=== PATIENT | female | born 1955 | race American Indian/Alaskan Native ===

== ENCOUNTER 2020-05-01 02:28 | Emergency (ER) | payer MEDICAID ==
[2020-05-01] MEDS ORDERED: metroNIDAZOLE 500 MG TAB PO ONE (03:31)
--- NOTE | 2020-05-01 03:31 | Emergency Department Report ---
ED Abdominal Pain HPI - General Chief Complaint: High BP Stated Complaint: LOOSE STOOL,RAPID HB, Time Seen by Provider: 05/01/20 03:21 Source: patient, EMS Mode of arrival: Stretcher Limitations: No Limitations - History of Present Illness Initial Comments: CC: "I'm not in pain." HPI: This is a 64 yo female with hx of CHF and possible CVA who presents with shortness of breath, leg swelling, stomach upset, diarrhea. Patient was transported from assisted living facility via EMS. She says, "I do not feel bad. My stomach was just upset. Smelly poop." Patient thinks she may have "messed up" with her medications. No further history provided. Patient has not been to our hospital on prior occasion. Patient was most recently seen at [facility]. Patient has mild shortness of breath, mild leg swelling for several days. MD Complaint: abdominal pain -: Gradual, days(s) (1 day) Location: periumbilical Radiation: none Severity scale (0 -10): 0 Quality: dull Consistency: now resolved Improves With: nothing Worsens With: nothing Associated Symptoms: diarrhea - Related Data Previous Rx's Medication Instructions Recorded Last Taken Type metroNIDAZOLE [Flagyl] 500 mg PO Q12HR 7 Days #14 tab 05/01/20 Unknown Rx Allergies Allergy/AdvReac Type Severity Reaction Status Date / Time No Known Allergies Allergy Unverified 05/01/20 02:52 ED Review of Systems ROS: Stated complaint: LOOSE STOOL,RAPID HB, Other details as noted in HPI Comment: All other systems reviewed and negative Constitutional: denies: chills, fever, malaise Respiratory: shortness of breath. denies: cough Cardiovascular: denies: chest pain Gastrointestinal: abdominal pain, diarrhea ED Past Medical Hx - Past Medical History Previous Medical History?: Yes Hx Hypertension: Yes Hx Congestive Heart Failure: Yes - Social History Smoking Status: Never Smoker - Medications Home Medications: Home Medications Medication Instructions Recorded Confirmed Last Taken Type metroNIDAZOLE [Flagyl] 500 mg PO Q12HR 7 Days #14 tab 05/01/20 Unknown Rx ED Physical Exam - General Limitations: No Limitations General appearance: alert, in no apparent distress, other (pleasant, smiling, no acute distress) - Head Head exam: Present: atraumatic, normocephalic - Eye Eye exam: Present: normal appearance - ENT ENT exam: Present: mucous membranes moist - Neck Neck exam: Present: normal inspection, full ROM - Respiratory Respiratory exam: Present: normal lung sounds bilaterally. Absent: respiratory distress, wheezes, rales, stridor - Cardiovascular Cardiovascular Exam: Present: regular rate, normal rhythm, normal heart sounds. Absent: systolic murmur, diastolic murmur, rubs, gallop - GI/Abdominal GI/Abdominal exam: Present: soft, normal bowel sounds. Absent: distended, tenderness, guarding, rebound - Extremities Exam Extremities exam: Present: pedal edema - Back Exam Back exam: Present: normal inspection - Neurological Exam Neurological exam: Present: alert, other (oriented to name and place) - Psychiatric Psychiatric exam: Present: normal affect, normal mood - Skin Skin exam: Present: warm, dry, intact, normal color. Absent: rash ED Course Vital Signs 05/01/20 05/01/20 05/01/20 02:45 02:48 03:00 Temperature 98.3 F Pulse Rate 107 H 111 H 104 H Respiratory 20 18 21 Rate Blood Pressure 216/114 216/114 197/107 O2 Sat by Pulse 100 100 100 Oximetry 05/01/20 05/01/20 05/01/20 03:15 03:25 03:30 Temperature Pulse Rate 100 H 99 H Respiratory 18 18 19 Rate Blood Pressure 164/113 173/113 O2 Sat by Pulse 100 99 Oximetry 05/01/20 05/01/20 05/01/20 04:00 04:06 04:15 Temperature Pulse Rate 92 H 92 H 87 Respiratory 19 19 Rate Blood Pressure 156/79 179/115 160/93 O2 Sat by Pulse 100 100 Oximetry 05/01/20 04:30 Temperature Pulse Rate 85 Respiratory 15 Rate Blood Pressure 177/93 O2 Sat by Pulse 100 Oximetry ED Medical Decision Making - Lab Data Result diagrams: 05/01/20 03:53 05/01/20 03:53 - Radiology Data Radiology results: report reviewed, image reviewed CHEST 1 VIEW 05/01/2020 3:01 AM INDICATION / CLINICAL INFORMATION: shortness of breath. COMPARISON: None available. FINDINGS: SUPPORT DEVICES: None. HEART / MEDIASTINUM: No significant abnormality. LUNGS / PLEURA: No significant pulmonary or pleural abnormality. Prior granulomatous exposure. No pneumothorax. ADDITIONAL FINDINGS: No significant additional findings. IMPRESSION: No acute abnormality. - Medical Decision Making 1. dyspepsia, diarrhea: possible medication effect, with recent hospitalization, patient is at risk for C. Difficile colitis. Stool is quite malodorous. Will prescribe Flagyl. 2. Hx of CHF: no respiratory distress, mild pedal edema CBC chemistry unremarkable Critical care attestation.: If time is entered above; I have spent that time in minutes in the direct care of this critically ill patient, excluding procedure time. ED Disposition Clinical Impression: Colitis, Hx of heart failure Disposition: [id number] ANOTHER TYPE HLTHCARE Is pt being admited?: No Does the pt Need Aspirin: No Condition: Stable Instructions: Colitis Prescriptions: metroNIDAZOLE [Flagyl] 500 mg PO Q12HR 7 Days #14 tab
--- NOTE | 2020-05-01 04:12 | XRay Report ---
CHEST 1 VIEW 05/01/2020 3:01 AM INDICATION / CLINICAL INFORMATION: shortness of breath. COMPARISON: None available. FINDINGS: SUPPORT DEVICES: None. HEART / MEDIASTINUM: No significant abnormality. LUNGS / PLEURA: No significant pulmonary or pleural abnormality. Prior granulomatous exposure. No pne umothorax. ADDITIONAL FINDINGS: No significant additional findings. IMPRESSION: No acute abnormality. Signer Name: Alexis Addison MD Signed: 05/01/2020 4:07 AM Workstation Name: [id number]
[2020-05-01 04:24] LABS: Basophils # (Auto) 0.1 K/mm3 (0.0-0.1); Basophils % (Auto) 2.1 % (0.0-1.8); Calcium 9.6 mg/dL (8.4-10.2); Eosinophils # (Auto) 0.1 K/mm3 (0.0-0.4); Eosinophils % (Auto) 1.2 % (0.0-4.3); Hematocrit 33.2 % (30.3-42.9); Hemoglobin 11.4 gm/dl (10.1-14.3); Lymphocytes # (Auto) 1.9 K/mm3 (1.2-5.4); Lymphocytes % (Auto) 34.3 % (13.4-35.0); Mean Corpuscular HGB Conc 34 % (30-34); Mean Corpuscular Volume 78 fl (79-97); Monocytes # (Auto) 0.5 K/mm3 (0.0-0.8); Monocytes % (Auto) 8.5 % (0.0-7.3); Platelet Count 393 K/mm3 (140-440); Red Blood Count 4.26 M/mm3 (3.65-5.03); Red Cell Distribution Width 16.4 % (13.2-15.2)
[2020-05-01 08:36] VITALS: BP 158/88
== END 2020-05-01 08:55 | disposition other institution (70) ==
LOC: ED 02:28
DX: K52.9 Noninfective gastroenteritis and colitis, unspecified (principal); I11.0 Hypertensive heart disease with heart failure; I50.9 Heart failure, unspecified; Z79.899 Other long term (current) drug therapy
CPT/HCPCS: 36415; 71045; 80048; 85025; 96374